=== PATIENT | female | born 1935 ===

== ENCOUNTER 2019-05-29 08:14 | Outpatient (CLI) | payer OTHER | END 2019-05-29 09:00 | disposition home or self-care (01) | LOC: WOUND MED 08:14 | DX: E10.622 Type 1 diabetes mellitus with other skin ulcer (principal); T21.21XA Burn of second degree of chest wall, initial encounter; L03.313 Cellulitis of chest wall | CPT/HCPCS: 11042; G0463; A4554; A4930; A6216; A6219 ==

== ENCOUNTER 2019-06-05 07:17 | Outpatient (CLI) | payer OTHER | END 2019-06-05 08:30 | disposition home or self-care (01) | LOC: WOUND MED 07:17 | DX: E10.622 Type 1 diabetes mellitus with other skin ulcer (principal); T21.21XD Burn of second degree of chest wall, subsequent encounter; L03.313 Cellulitis of chest wall | CPT/HCPCS: G0463; A4554; A4930; A6216 ==